=== PATIENT | female | born 1990 | race Caucasian/White ===

== ENCOUNTER → 2018-09-25 16:41 | Outpatient (CLI) | payer OTHER, SELFPAY ==
--- NOTE | 2018-09-25 16:48 | RAD_ITS ---
HISTORY: cough EXAM: XR Chest 2 Views: COMPARISON: None FINDINGS: Normal heart size. Midline trachea. On the frontal view, subtle asymmetric increased density at the lower right chest with no corresponding abnormality on the lateral view and the above finding is likely related to superimposed chest wall soft tissues. Clear left lung. No vascular congestion or pleural effusion. No pneumothorax. The bony thorax appears intact. IMPRESSION: No acute cardiopulmonary disease. at 0305 Reported and signed by: Dashawn Dumont MD Electronically Signed: Dashawn Dumont, at 3:03 EST Tel , Service support , RAD/Chest PA and Lateral
--- OUTSIDE RECORDS SUMMARY | 2018-11-11 14:18 | XMS RPT_ITS ---
:1990 Author Organization [facility] Care Team Providers Name Role Phone Gage Cadena Attending Unavailable Gage Cadena Referring Unavailable Cynthia Saravia Primary Care Unavailable PROBLEMS PROBLEMS No Problem Records FoundPROCEDURES PROCEDURES No Procedure Records FoundRESULTS RESULTS CHEST PA AND LATERAL Observed: 09/25/2018 Status: F Source: [place] 4:48 PM [facility] REPOSITORY [facility] Imaging Services [address] [place] [address] Chest PA and Lateral MR#: [id number] Acct: [id number] Name: GERMAINE POSADAS Rep #: [id number] : 1990 F 27 From: Dashawn Dumont MD PCP: Cynthia Saravia MD Status: REG CLI Study: Chest PA and Lateral Date of Exam: 09/25/18 Exam# [id number] Ordering Dr: Gage Cadena MD HISTORY: cough EXAM: XR Chest 2 Views: COMPARISON: None FINDINGS: Normal heart size. Midline trachea. On the frontal view, subtle asymmetric increased density at the lower right chest with no corresponding abnormality on the lateral view and the above finding is likely related to superimposed chest wall soft tissues. Clear left lung. No vascular congestion or pleural effusion. No pneumothorax. The bony thorax appears intact. IMPRESSION: No acute cardiopulmonary disease. at 0305 Reported and signed by: Dashawn Dumont MD Electronically Signed: Dashawn Dmuont, at 3:03 EST Tel , Service support , RAD/Chest PA and Lateral CC: Cynthia Saravia MD; Gage Cadena MD Academic Affairs Assistant: Signed ALLERGIES ALLERGIES No Allergies Records FoundENCOUNTERS ENCOUNTERS ADMIT/DISCHARGE ACCOUNT ADMITTING ENCOUNTER LOCATION SOURCE NUMBER CLASS 09/25/2018 [id number] Ambulatory [place] [place] [facility] ing:MTRAD Repository PAYERS PAYERS ENCOUNTER GUARANTOR PAYER SUBSCRIBER SOURCE 09/25/2018 GERMAINE FRASER [facility] GERMAINE Ndiaye [id number] HEYL Insurance:MEDICAL ICKESDOB: [facility] [id number] [address]Llk: (330) Number: Repository [phone] HP) [id number] Date:[id number] [address] [place] [id number]: 09/25/2018 Secondary NOT GIVENUNK [place] Insurance:SELF PAY [facility] Number: Effective Repository Date:2018-09-25
== END ==
PROVIDERS: Family Provider Family Medicine; PCP Family Medicine; Referring Provider Family Medicine; Visit Provider Family Medicine
DX: R05 Cough (principal)
CPT/HCPCS: 71046